=== PATIENT | male | born 1990 | race Two or more races ===

== ENCOUNTER 2019-01-17 14:07 | Emergency (ER) | payer MEDICAID ==
[~2019-01-17] VITALS: Ht 177.8 cm; Wt 68.0 kg
[2019-01-17 14:25] VITALS: BP 116/72
--- NOTE | 2019-01-17 15:28 | NUR ---
OLEKSANDR WAS CONTACTED FOR PT'S CASE NUMBER, [id number], OFFICER TO COME AND SPEAK TO PT
--- NOTE | 2019-01-17 16:03 | NUR ---
[employer] OFFICER RESPONDED, HAD SPOKEN TO PT AT THE SCENE ALREADY
[2019-01-17] MEDS ORDERED: HYDROcodone/acetaminophen 5mg/325mg tablet PO ONE (16:10)
== END 2019-01-17 17:29 | disposition left against medical advice (07) ==
LOC: ER 14:07
DX: S02.611A Fracture of condylar process of right mandible, initial encounter for closed fracture (principal); S03.00XA Dislocation of jaw, unspecified side, initial encounter; Z88.1 Allergy status to other antibiotic agents; Z88.8 Allergy status to other drugs, medicaments and biological substances; Y04.0XXA Assault by unarmed brawl or fight, initial encounter; Y93.89 Activity, other specified; Y92.89 Other specified places as the place of occurrence of the external cause; Y99.9 Unspecified external cause status
CPT/HCPCS: 70100; 70486; 99284

== ENCOUNTER 2023-07-25 03:50 | Emergency (ER) | payer MEDICAID ==
[~2023-07-25] VITALS: Ht 177.8 cm; Wt 65.9 kg
[2023-07-25 03:54] VITALS: TEMP 98
[2023-07-25] MEDS: HYDROcodone/acetaminophen 10/325mg tab PO ONE (04:31)
[2023-07-25] MEDS ORDERED: DOXY-224 PO (04:34)
[2023-07-25] MEDS: DOXYCYCLINE 100MG CAPSULE PO STA (04:41)
[2023-07-25 04:59] VITALS: BP 146/91; PULSE 114; RESP 20; O2SAT 98
== END 2023-07-25 05:04 ==
LOC: ER 03:51
DX: S42.402A Unspecified fracture of lower end of left humerus, initial encounter for closed fracture (principal); X58.XXXA Exposure to other specified factors, initial encounter; Y93.89 Activity, other specified; Y92.89 Other specified places as the place of occurrence of the external cause; Y99.8 Other external cause status
CPT/HCPCS: 29105; 73080; 99283; A4565